=== PATIENT | female | born 1955 | race Caucasian/White ===

== ENCOUNTER → 2022-05-04 | Outpatient (CLI) | payer MEDICARE, SELFPAY ==
[2022-05-04 12:41] LABS: Hemoglobin A1c 7.1 % (3.8-5.6)
[2022-05-04 12:44] LABS: Hematocrit 38.7 % (37-47); Hemoglobin 12.4 g/dL (12.0-15.0); Mean Corpuscular Hgb 29.1 pg (27.0-32.0); Mean Corpuscular Volume 90.8 fL (81-99); Mean Platelet Vol. 10.8 fl (6.2-12.0); Platelet Count 248 K/mm3 (150-450); RBC Distribution Width SD 39.4 fl (35.1-43.9); Red Blood Count 4.26 M/mm3 (4.2-5.4); White Blood Count 5.9 K/mm3 (4.4-11.0)
[2022-05-04 12:57] LABS: AST(SGOT) 20 U/L (15-37); Alanine Aminotransfer ALT/SGPT 25 U/L (13-56); Albumin, Serum 3.8 g/dL (3.2-5.0); Alkaline Phosphatase 136 U/L (45-117); Anion Gap 6 (5-15); BUN 14 mg/dL (7-18); Calcium,Total 9.2 mg/dL (8.5-10.1); Chloride 103 mmol/L (98-107); Cholesterol 111 mg/dL (200); EST Glomerular Filtration Rate 59 mL/min (>60); Est Glom Filt Rate - Afr Amer 72 mL/min (>60); Globulin 3.7 g/dL (2.2-4.2); Glucose 169 mg/dL (74-106); High Density Lipoprotein 43 mg/dL; Potassium 3.8 mmol/L (3.5-5.1); Protein, Total 7.5 g/dL (6.4-8.2); Sodium Level 137 mmol/L (136-145); Triglycerides 97 mg/dL; Very Low Density Lipoprotein 19 mg/dL (5-40)
[2022-05-04 12:59] LABS: Microalbumin,Random Urine 7.2 mg/L (NO RANGE EST.)
== END | disposition home or self-care (01) ==
PROVIDERS: Referring Provider Nurse Practitioner Family; Visit Provider Nurse Practitioner Family
DX: E11.9 Type 2 diabetes mellitus without complications (principal); E78.5 Hyperlipidemia, unspecified
CPT/HCPCS: 36415; 80053; 80061; 82043; 83036; 85027

== ENCOUNTER → 2022-08-28 | Outpatient (CLI) | payer MEDICARE, SELFPAY ==
[2022-08-30 21:07] LABS: Pancreatic Elastase, Fecal 300 (>200)
== END | disposition home or self-care (01) ==
LOC: LABSPEC 09:40
PROVIDERS: Referring Provider Nurse Practitioner Adult Health; Visit Provider Nurse Practitioner Adult Health
DX: R14.0 Abdominal distension (gaseous) (principal); R10.10 Upper abdominal pain, unspecified; R19.7 Diarrhea, unspecified
CPT/HCPCS: 82653

== ENCOUNTER → 2022-09-03 | Outpatient (CLI) | payer MEDICARE, SELFPAY ==
--- NOTE | 2022-09-03 07:17 | US_ITS ---
INDICATION: postprandial upper abd pain, vomit EXAMINATION: Ultrasound US Abdomen Limited (quadrant) TECHNIQUE: Black scale and color doppler imaging was performed of the right upper quadrant. COMPARISON: FINDINGS: LIVER: The liver is diffusely echogenic consistent with fatty infiltration. No focal hepatic lesion. There is no free fluid. GALLBLADDER AND BILIARY TREE: No shadowing gallstone, pericholecystic fluid or gallbladder wall thickening is demonstrated. The proximal common bile duct measures 6.9 mm, which is within normal limits for the patient''s age. Songraphic Auguste''s sign: Negative. PANCREAS: No focal abnormality is demonstrated in the pancreas. No pancreatic ductal dilatation. RIGHT KIDNEY: The right kidney measures 10.8 cm in length and is within normal limits. US/Abdomen Limited IMPRESSION: Fatty infiltration of the liver. Mildly dilated common bile duct. Electronically Signed: Mitra Delgado MD at 8:14 EDT ,
== END | disposition home or self-care (01) ==
LOC: US 07:17
PROVIDERS: Referring Provider Nurse Practitioner Adult Health; Visit Provider Nurse Practitioner Adult Health
DX: R10.10 Upper abdominal pain, unspecified (principal); R14.0 Abdominal distension (gaseous)
CPT/HCPCS: 76705

== ENCOUNTER → 2022-09-05 | Outpatient (CLI) | payer MEDICARE, SELFPAY ==
--- NOTE | 2022-09-05 12:49 | NM_ITS ---
CLINICAL: 66-year-old female with history of abdominal pain and chronic nausea. SEMI-SOLID PHASE 99m Tc SULFUR COLLOID GASTRIC EMPTYING STUDY COMPARISON: Abdominal ultrasound report 09/03/2022 FINDINGS: The patient was administered 1.1 mCi of 99m Tc sulfur colloid mixed with oatmeal and consumed per os. Image acquisitions in the anterior-posterior projections were obtained for 60 minutes. There is prompt visualization of the stomach. There is no gastroesophageal reflux identified. The T ? raw data emptying was calculated to be 14.29 minutes, (Normal: 12-56 minutes). NM/Gastric Emptying Study IMPRESSION: 1. NORMAL 99m Tc sulfur colloid semi-solid phase (oatmeal) gastric emptying imaging examination. A. There is normal and preserved semi-solid phase gastric emptying compared. (Fernando et al, J Nucl Med Tech 38: 186, 2010). Electronically Signed: Alvarez Marcano, at 15:13 EDT ,
== END | disposition home or self-care (01) ==
LOC: NM 12:47
PROVIDERS: Referring Provider Nurse Practitioner Adult Health; Visit Provider Nurse Practitioner Adult Health
DX: R14.0 Abdominal distension (gaseous) (principal)
CPT/HCPCS: 78264; A9541

== ENCOUNTER 2022-09-17 06:02 | Day surgery (SDC) | payer MEDICARE, SELFPAY ==
--- NOTE | 2022-09-14 | IMM_PTH ---
PATIENT: MARLEN GRACE LOC: EN U#:[id number] AGE/SX: 66/F ROOM: RE09/17/[address]: Dr. Diallo John DO : 1955 BED: DIS: 09/17/2022 SPEC #: [id number] RECD: 09/17/22 14:51 STATUS: ZULMA REQ #: [id number] MORRIS: 09/14/22 00:[address]: Diallo John DEPT: IMMUNOHISTOCHEMISTRY RECD BY: Yuan Real ENTERED: 09/17/22 14:51 SP TYPE: IMMUNO OTHR DR: Lillian Markham, CHIEF DIGITAL OFFICERLorenzaC [facility] Tissues: B - Gastric mucous membrane Procedures: H Pylori (initial) PHYSICIAN & INSTITUTION [place] [id number] SPECIMEN INFORMATION: Tissue Source: B. Gastric antrum Clinical Info: upper abdominal pain, diarrhea Specimen Number: [id number] CPT code: 24972 METHODOLOGY: Deparaffinized sections of prefer/formalin-fixed tissue or PAP/DQ stained slides are incubated with monoclonal/polyclonal antibodies/oligonucleotide probes. Localization is made via biotin free immunoperoxidase method. Appropriate controls are performed and reacted as expected. Results on target cell population are indicated in the following table: RESULTS: ANTIBODY / CLONE RESULT H Pylori (polyclonal) negative These tests were developed and their performance characteristics determined by [facility]. They may not have been cleared or approved by the U.S. Food and Drug Administration. The FDA has determined that such clearance or approval is not necessary. The above immunohistochemical/dualISH markers are ordered and reviewed by the Pathologist. INTERPRETATION: B. Gastric antrum, biopsy: Negative for Helicobacter pylori organisms. SJ:jaimee 09/19/22
--- NOTE | 2022-09-17 06:25 | HP.PCM_ITS ---
History and Physical Date of Admission: 09/17/22 MARLEN GRACE, is a 66 F who presents to the office today to establish with Gastroenterology for several months of postprandial bloating and tightness and pain. Pain is epigastric and LUQ. Symptoms especially after supper, but can be after breakfast and lunch. Tried eating slower, tried smaller meals w/o relief. Occas vomiting. No early satiety. No relief with PPI. No relief with metamucil. Has gained 8 lbs. She has had years of LUQ discomfort; reports colonoscopy a few yrs ago that was negative. No heartburn, acid reflux, dysphagia. Stools tend to be loose, started yrs ago, not bothersome to her, daily BM every morning, better when switched from short-acting to long-acting metformin. No constipation. No melena or hematochezia. DM2 on insulin ROS Const Constitutional: Positive for weight change; No fatigue ENT ENT: No difficulty swallowing Cardio Cardiology: Positive for leg pain with exertion Gastro GI: Positive for abdominal pain, bloating, change in bowel habits, constipation, diarrhea, excessive flatus, nausea/dyspepsia and vomiting; No belching, change in stool character, coffee ground emesis, cramping, heartburn, difficulty swallowing, feeling full early, incontinent of stools, Vomiting blood/hematemesis, Blood in stool, loose stools, Black,tarry stools, pain with swallowing or other Musc Musculoskeletal: Positive for joint pain, muscle cramps, leg pain at night and leg pain with exertion Skin Skin: No yellowing of the eye or itchy eyes Psych Psychiatric: No anxiety and No depression Endo Endocrine: Positive for weight change; No fatigue Aller/Imm Allergy/Immunologic: No itchy eyes Jose/Lymp Hematologic/Lymphatic: No easy bleeding or easy bruising Exam Const General: cooperative and comfortable Orientation: alert, awake and oriented x3 Eyes Sclera: sclerae normal Resp Effort & Inspection: normal respiratory effort GI Inspection: normal to inspection Palpation: soft, no hepatosplenomegaly, no masses and tender in the LUQ Quality Reporting Tobacco Screening ([facility] 138) Smoking Status: Current every day smoker Assessment and Plan Assessment and Plan (1) Postprandial abdominal bloating: Status: Chronic Plan: 66 yr old female with several months of postprandial upper abdominal bloating/pain/tightness. DDx includes gastroparesis, EPI, gastritis. Will get gastric emptying study, upper abd US, fecal elastase, EGD. Will call her with results. F/u appt 2 wks after EGD. (2) Upper abdominal pain: Status: Chronic (3) Diarrhea: Status: Chronic Orders: Orders Gastric Emptying Study Today R14.0 - Abdominal distension (gaseous) Abdomen Limited Today R10.10 - Upper abdominal pain, unspecified, R14.0 - Abdominal distension (gaseous) Pancreatic Elastase, Fecal Today R10.10 - Upper abdominal pain, unspecified, R14.0 - Abdominal distension (gaseous), R19.7 - Diarrhea, unspecified I have examined the patient and the H&P has been reviewed. There are no clinical changes since date of exam.
[2022-09-17] MEDS: Lactated Ringers 1,000 ML 15 ML IV (06:45)
[2022-09-17 07:05] VITALS: BP 128/83; PULSE 70; RESP 16; TEMP 36.2; O2SAT 99; BMI 32.5
--- NOTE | 2022-09-17 07:15 | EGD_PTH ---
PATIENT: MARLEN GRACE LOC: EN U#:[id number] AGE/SX: 66/F ROOM: RE09/17/[address]: Dr. Diallo John DO : 1955 BED: DIS: 09/17/2022 SPEC #: [id number] RECD: 09/17/22 10:55 STATUS: ZULMA REValarie #: [id number] MORRIS: 09/17/22 07:[address]: Diallo John DEPT: SURGICAL PATHOLOGY RECD BY: Charissa Artis ENTERED: 09/17/22 11:42 SP TYPE: EGD BIOPSY OT DR: Lillian Markham, PROPELLANT CHARGE ZONE ASSEMBLER-C [facility] Tissues: A - Duodenum, NOS B - Gastric mucous membrane C - Gastric mucous membrane Procedures: Special Stain Group II Surgery Specimen Level IV Alcian Blue/PAS (control) HEADER OPERATION: EGD biopsy PRE-OP DIAGNOSIS: Postprandial abdominal bloating, upper abdominal pain, diarrhea TISSUE SUBMITTED: A. Duodenum, B. Gastric antrum, C. Gastric body biopsy MICROSCOPIC DIAGNOSIS A. Duodenum, biopsy: Fragments of duodenal mucosa with focal gastric metaplasia. B. Gastric antrum, biopsy: Mild gastritis. See microscopic description and comment. C. Gastric body biopsy: Mild gastritis. See microscopic description. COMMENT B. Alcian blue/PAS stain with matched control is used in the evaluation of the specimen. MICROSCOPIC DESCRIPTION Slides are reviewed. B. The specimen shows fragments of gastric mucosa with chronic inflammatory cell infiltrates in the lamina propria consisting of lymphocytes and plasma cells, consistent with mild chronic gastritis. Focal intestinal metaplasia (goblet cell metaplasia) is also noted. B. The specimen shows fragments of gastric mucosa with chronic inflammatory cell infiltrates in the lamina propria consisting of lymphocytes and plasma cells, consistent with mild chronic gastritis. GROSS DESCRIPTION A. Received is one container labeled with the patient name and designated duodenum. The specimen consists of multiple irregular fragments of light gold soft tissue that in aggregate measure 1 x 0.3 x 0.1 cm. The specimen is totally submitted in one cassette. / B. Received is one container labeled with the patient name and designated gastric antrum. The specimen consists of two irregular fragments of light gold soft tissue that in aggregate measure 0.6 x 0.2 x 0.1 cm. The specimen is totally submitted in one cassette. / : C. Received is one container labeled with the patient name and designated gastric body. The specimen consists of two irregular fragments of light gold soft tissue that in aggregate measure 0.6 x 0.3 x 0.1] cm. The specimen is totally submitted in one cassette. / SJ: 09/18/22 TC:3 CPT: 41192c 3, 45866
[2022-09-17 07:36] VITALS: BP 104/58; BP 128/83; PULSE 67; RESP 18; TEMP 36.3; O2SAT 97
[2022-09-17 07:40] VITALS: BP 128/83; BP 99/59; PULSE 64; RESP 18; O2SAT 96
--- NOTE | 2022-09-17 07:40 | OP.EGD_ITS ---
Patient Name: Ayanna Rajan Procedure Date: 09/17/2022 7:20 AM Date of : 1955 Age: 66 Procedure: Upper GI endoscopy Indications: Epigastric abdominal pain Providers: Diallo John DO Medicines: Monitored Anesthesia Care Patient Profile: This is a 66 year old female. Refer to note in patient chart for documentation of history and physical. Patient has symptoms of chronic epigastric abdominal pain and chronic dyspepsia. Complications: No immediate complications. Procedure: Pre-Anesthesia Assessment: - Prior to the procedure, a History and Physical was performed, and patient medications and allergies were reviewed. The risks and benefits of the procedure and the sedation options and risks were discussed with the patient. All questions were answered and informed consent was obtained. Patient identification and proposed procedure were verified by the physician. Mental Status Examination: normal. Respiratory Examination: clear to auscultation. Prophylactic Antibiotics: The patient does not require prophylactic antibiotics. Prior Anticoagulants: The patient has taken no previous anticoagulant or antiplatelet agents. ASA Grade Assessment: II - A patient with mild systemic disease. After reviewing the risks and benefits, the patient was deemed in satisfactory condition to undergo the procedure. The anesthesia plan was to use monitored anesthesia care (MAC). Immediately prior to administration of medications, the patient was re-assessed for adequacy to receive sedatives. The heart rate, respiratory rate, oxygen saturations, blood pressure, adequacy of pulmonary ventilation, and response to care were monitored throughout the procedure. The physical status of the patient was re-assessed after the procedure. After obtaining informed consent, the endoscope was passed under direct vision. Throughout the procedure, the patient's blood pressure, pulse, and oxygen saturations were monitored continuously. The Endoscope was introduced through the mouth, and advanced to the second part of duodenum. The upper GI endoscopy was accomplished without difficulty. The patient tolerated the procedure well. Scope In: 7:26:27 AM Scope Out: 7:30:57 AM Total Procedure Duration Time 0 hours 4 minutes 30 seconds Findings: A single area of ectopic gastric mucosa was found in the upper third of the esophagus, 19 cm from the incisors. The examined esophagus was normal. Patchy mildly erythematous mucosa without bleeding was found in the gastric body. Biopsies were taken with a cold forceps for histology. Verification of patient identification for the specimen was done. Estimated blood loss was minimal. Diffuse moderate inflammation characterized by congestion (edema), erosions, erythema, friability and granularity was found in the duodenal bulb. Biopsies were taken with a cold forceps for histology. Verification of patient identification for the specimen was done. Estimated blood loss was minimal. Impression: - Ectopic gastric mucosa in the upper third of the esophagus. - Normal esophagus. - Erythematous mucosa in the gastric body. Biopsied. - Chronic duodenitis secondary to lack of pyloric sphincter causing poor admixture and dumping into the duodenum resulting in inflammation and swelling in the duodenum. Biopsied. Recommendation: - Discharge patient to home. - Resume previous diet. - Continue present medications. - Await pathology results. - Antidumping diet Procedure Code(s): --- Professional --- 48652, Esophagogastroduodenoscopy, flexible, transoral; with biopsy, single or multiple CPT copyright 2017 [employer]. All rights reserved. The codes documented in this report are preliminary and upon ski top trimmer review may be revised to meet current compliance requirements. Diallo John DO 09/17/2022 7:39:21 AM This report has been signed electronically. Number of Addenda: 0 Note Initiated On: 09/17/2022 7:20 AM
--- NOTE | 2022-09-17 07:40 | OP.CCLET_ITS ---
09/17/2022 Elisa Deluna [facility] Re : Upper GI endoscopy procedure for Ayanna Armendariz [facility] This procedure was performed on Saturday, September 17, 2022. My impressions and recommendations are as follows: Impressions : - Ectopic gastric mucosa in the upper third of the esophagus. - Normal esophagus. - Erythematous mucosa in the gastric body. Biopsied. - Chronic duodenitis secondary to lack of pyloric sphincter causing poor admixture and dumping into the duodenum resulting in inflammation and swelling in the duodenum. Biopsied. Recommendations : - Discharge patient to home. - Resume previous diet. - Continue present medications. - Await pathology results. - Antidumping diet My findings are described in the full procedure note, which is enclosed. If I can be of further assistance, please feel free to contact me at . Sincerely, Diallo John, 09/17/2022 7:39:21 AM This report has been signed electronically.
[2022-09-17 07:45] VITALS: BP 128/83; BP 99/59; PULSE 64; RESP 16; O2SAT 98
[2022-09-17 07:51] VITALS: BP 128/83; BP 98/57; PULSE 63; RESP 16; TEMP 36.3; O2SAT 99
[2022-09-17 08:08] VITALS: BP 128/83
[2022-09-17 09:16] LABS: Bedside Glucose 129 mg/dL (74-106)
== END 2022-09-17 08:18 | disposition home or self-care (01) ==
LOC: EN 06:04 → AC 06:07
PROVIDERS: Referring Provider Internal Medicine Gastroenterology; Visit Provider Internal Medicine Gastroenterology
PROC: 0DJ08ZZ Inspection of Upper Intestinal Tract, Via Natural or Artificial Opening Endoscopic (ICD-10-PCS; CPT 43235; principal; 2022-09-17 07:10)
DX: K29.80 Duodenitis without bleeding (principal); E11.9 Type 2 diabetes mellitus without complications; F17.200 Nicotine dependence, unspecified, uncomplicated; K31.A0 Gastric intestinal metaplasia, unspecified; K29.70 Gastritis, unspecified, without bleeding; Z79.01 Long term (current) use of anticoagulants; Z79.84 Long term (current) use of oral hypoglycemic drugs; Z79.899 Other long term (current) drug therapy; E78.00 Pure hypercholesterolemia, unspecified; Z87.19 Personal history of other diseases of the digestive system
CPT/HCPCS: 43239; 82962; 88305; 88313; 88342; J7120; J2405

== ENCOUNTER → 2022-10-24 | Outpatient (CLI) | payer MEDICARE, SELFPAY ==
[2022-10-24 10:20] LABS: Hematocrit 38.3 % (37-47); Hemoglobin 11.9 g/dL (12.0-15.0); Mean Corp Hgb Conc 31.1 g/dL (32-36); Mean Corpuscular Hgb 28.2 pg (27.0-32.0); Mean Corpuscular Volume 90.8 fL (81-99); Mean Platelet Vol. 10.4 fl (6.2-12.0); Platelet Count 258 K/mm3 (150-450); RBC Distribution Width CV 12.6 % (11.6-14.6); RBC Distribution Width SD 41.1 fl (35.1-43.9); Red Blood Count 4.22 M/mm3 (4.2-5.4); White Blood Count 6.7 K/mm3 (4.4-11.0)
[2022-10-24 11:06] LABS: ALB/GLOB Ratio 0.9 RATIO (0.9-2.4); AST(SGOT) 15 U/L (15-37); Alanine Aminotransfer ALT/SGPT 22 U/L (13-56); Albumin, Serum 3.5 g/dL (3.2-5.0); Alkaline Phosphatase 108 U/L (45-117); Anion Gap 7 (5-15); BUN 16 mg/dL (7-18); BUN/Creat Ratio 15.7 RATIO (10-20); Calcium,Total 8.9 mg/dL (8.5-10.1); Chloride 107 mmol/L (98-107); Creatinine, Serum 1.02 mg/dL (0.55-1.02); EST Glomerular Filtration Rate 58 mL/min (>60); Est Glom Filt Rate - Afr Amer 70 mL/min (>60); Globulin 3.7 g/dL (2.2-4.2); Glucose 274 mg/dL (74-106); Potassium 4.3 mmol/L (3.5-5.1); Protein, Total 7.2 g/dL (6.4-8.2); Sodium Level 140 mmol/L (136-145); Thyroid Stim Hormone (TSH) 1.86 uIU/mL (0.358-3.74)
== END | disposition home or self-care (01) ==
LOC: MTLAB 09:13
PROVIDERS: Referring Provider Nurse Practitioner Family; Visit Provider Nurse Practitioner Family
DX: I10 Essential (primary) hypertension (principal); E11.9 Type 2 diabetes mellitus without complications
CPT/HCPCS: 36415; 80053; 83036; 84443; 85027

== ENCOUNTER 2023-04-04 10:34 | Emergency (ER) | payer MEDICARE, SELFPAY ==
[2023-04-04 10:35] VITALS: BP 166/71; PULSE 88; RESP 18; TEMP 36.8; O2SAT 97; BMI 34.0
--- NOTE | 2023-04-04 10:47 | EX.ED.DYSGE1 ---
HPI History of Present Illness Chief Complaint: Abd Pain [facility] Medical History (Updated 01/04/23 @ 10:[address] Landrum Friend, DO) Cancer Constipation Diabetes Former smoker High cholesterol History of gallstones HLD (hyperlipidemia) Migraine headache Postprandial abdominal bloating Sleep apnea Home Medications cetirizine 10 mg tablet (Zyrtec) 10 mg PO DAILY allergies 03/29/17 [History Last Taken Unknown] insulin detemir U-100 100 unit/mL subcutaneous solution (Levemir U-100 Insulin) 70 units SQ QHS diabetes 03/29/17 [History Last Taken Unknown] insulin regular human 100 unit/mL injection solution (Novolin R Regular U-100 Insulin) 17 units SQ TID diabetes 03/29/17 [History Last Taken Unknown] lisinopril 40 mg tablet 20 mg PO BID BP 03/29/17 [History Last Taken 09/17/22] metformin 1,000 mg tablet 1,000 mg PO DAILY diabetes 03/29/17 [History Last Taken Unknown] atorvastatin 80 mg tablet 80 mg PO QHS #30 tabs 03/30/17 [Rx Last Taken Unknown] clopidogrel 75 mg tablet 75 mg PO DAILY #30 tabs 03/30/17 [Rx Last Taken 09/13/22] amlodipine 10 mg tablet 10 mg PO DAILY 08/15/22 [History Last Taken 09/17/22 05:30] magnesium 200 mg tablet 200 mg PO DAILY 08/15/22 [History Last Taken Unknown] ascorbic acid (vitamin C) 1,000 mg tablet (Vitamin C) 1 g PO DAILY 09/13/22 [History Last Taken Unknown] cholecalciferol (vitamin D3) 25 mcg (1,000 unit) tablet (Vitamin D3) 25 mcg PO DAILY 09/13/22 [History Last Taken Unknown] potassium 99 mg tablet 99 mg PO DAILY 09/13/22 [History Last Taken Unknown] Allergy/AdvReac Type Severity Reaction Status Date / Time Environmental Allergies: Allergy NEEDS Verified 04/04/23 10:35 Uncoded FOLLOW-UP Social History Smoking Status: Former smoker EXAM Physical Exam Const Vital Signs: 04/04/23 10:35 Temperature 98.3 F Temperature Source Temporal Pulse Rate 88 Respiratory Rate 18 Blood Pressure 166/71 H Blood Pressure Mean 102 Pulse Ox 97 Oxygen Delivery Method Room Air [facility] [place] Narrative Medical decision making narrative: HISTORY OF PRESENT ILLNESS: 67-year-old female presents with abdominal pain and nausea. Notes is been on for 3 weeks. Left upper quadrant pain. Notes history of hysterectomy and . No history of bladder cancer. Notes had an EGD in the past. Denies any fever, vomiting, chest pain, urinary complaints, vaginal bleeding or discharge. Notes chronic diarrhea REVIEW OF SYSTEMS: Pertinent positives: Abdominal pain, abdominal mass, diarrhea, nausea Pertinent negatives: Fever, chest pain PHYSICAL EXAM: Nursing triage notes reviewed, Vital signs reviewed Constitutional: please see [facility] HENT: MMM Eyes: Pupils equal round and reactive to light, Extraocular muscles intact Neck: No stridor, no JVD, full neck ROM Lungs: Clear to auscultation, No wheezing or rales. No increased work of breathing, no conversational dyspnea, no accessory muscle use, no nasal flaring. No respiratory distress noted Heart: Regular rate and rhythm, No murmurs, No rubs and No gallops, 2+ distal pulses (radial, femoral, posterior tibial) in all extremities Abdomen: Soft, there is no tenderness, rigidity, rebound or guarding, no obvious peritoneal signs, no palpable pulsatile abdominal masses, no auscultated abdominal bruit. No obvious hernia. : No CVAT Extremities: No edema Neuro: No focal neurological deficits, cranial nerves II through XII intact, 5/5 strength in all extremities. Intact sensation to light touch in all extremities, 2+ reflexes bilateral patella tendons. Normal gait. No ataxia. Skin: No rash or lesions noted MEDICAL DECISION MAKING: Chief Complaint: Abdominal pain External records reviewed: Myocardial ultrasound from August 2022 shows fatty infiltration of the liver but no evidence of acute gallbladder pathology Factors affecting care: Hyperlipidemia, history of gallstones, postprandial abdominal pain, type 2 diabetes [facility] Narrative: Patient was initially hemodynamically stable, afebrile, nontoxic-appearing abdominal exam was benign. No obvious herniation. No overlying skin changes. I considered the following differential diagnosis: Abdominal mass, pyelonephritis, kidney stone, obstruction, perforation I obtained a broad lab and imaging workup to further elucidate the etiology of the patient complaints. ALL IMAGES (IF OBTAINED) HAVE BEEN PERSONALLY REVIEWED AND INTERPRETED BY MYSELF. CT scan abdomen pelvis shows no evidence of mass obstruction or other intra-abdominal pathology CBC without leukocytosis, severe anemia, no thrombocytopenia. CMP without evidence of acute kidney injury, significant electrolyte abnormality, anion gap, no evidence hepatobiliary pathology. LFTs show no evidence of hepatobiliary pathology. Lipase is wnl indicating no pancreatic inflammation. Urinalysis shows no evidence of urinary inflammation suggestive of UTI The synthesis of the patient's history, physical exam, labs images suggest no acute life-limiting etiology. The patient's plan for discharge home with close GI follow-up. The patient and/or family, caregivers express understanding. The patient and/or family, caregivers agrees with the plan. Shared decision making: I will have a discussion with the patient and or visitors regarding risk/benefits of further testing or admission. They will be made aware of of the risk/benefits inherent in this decision they will be given the opportunity to voice understanding. Total critical care time today provided was at least 0 minutes. This excludes separately billable procedures. Critical care time (if documented) is secondary to the patient having high probability of clinically significant/life threatening deterioration in the patient's condition which required my urgent intervention. Impression: 1. Arm pain 2. History of diabetes 3. Hyperglycemia 4. Abdominal mass Dispo: Discharge Lab Data Labs: Laboratory Results - last 24 hr 04/04/23 04/04/23 11:30 11:39 WBC 6.2 RBC 4.49 Hgb 12.6 Hct 38.8 MCV 86.4 MCH 28.1 MCHC 32.5 RDW Std Deviation 40.0 RDW Coeff of Michaela 12.6 Plt Count 269 MPV 10.2 Immature Gran % (Auto) 0.300 Neut % (Auto) 60.0 Lymph % (Auto) 30.0 [place] % (Auto) 8.4 Eos % (Auto) 0.8 Baso % (Auto) 0.5 Absolute Neuts (auto) 3.7 Absolute Lymphs (auto) 1.86 Nucleated RBC % 0 Sodium 139 Potassium 4.1 Chloride 106 Carbon Dioxide 28.0 Anion Gap 5 BUN 15 Creatinine 0.97 Estim Creat Clear Calc 57.50 Est GFR (MDRD) Af Amer 74 Est GFR (MDRD) Non-Af 61 BUN/Creatinine Ratio 15.5 Glucose 181 H Calcium 9.6 Total Bilirubin 0.30 AST 15 ALT 26 Alkaline Phosphatase 127 H Total Protein 7.6 Albumin 3.8 Globulin 3.8 Albumin/Globulin Ratio 1.0 Lipase 36 Urine Color Yellow Urine Clarity Sl. Cloudy Urine pH 7.0 Ur Specific [place] 1.010 Urine Protein Negative Urine Glucose (UA) Normal Urine Ketones Negative Urine Occult Blood Negative Urine Nitrite Negative Urine Bilirubin Negative Urine Urobilinogen Normal Ur Leukocyte Esterase Negative Urine RBC 0 SEEN Urine WBC 0 SEEN Ur Squamous Epith Cells 0-5 SEEN Urine Bacteria 0 SEEN Urine Mucus 0 SEEN Radiography Diagnostic Testing: Clinical Impression(s) from Imaging Studies Abdomen/Pelvis CT 04/04/23 12:28 IMPRESSION: Mild hepatomegaly and fatty infiltration of the liver. Scattered sigmoid diverticula. Electronically Signed: Beltran Bull MD at 12:49 EST , Discharge Plan Triage Chief Complaint: Abd Pain ED Provider: Alejandro Chaudhry Dx/Rx/DC Orders Prescriptions: No Action amlodipine 10 mg tablet 10 mg PO DAILY magnesium 200 mg tablet 200 mg PO DAILY Novolin R Regular U100 Insulin 100 solution 17 units SQ TID Patient Comments: lisinopril 40 tablet 20 mg PO BID Patient Comments: Levemir U-100 Insulin 100 solution 70 units SQ QHS Patient Comments: cetirizine [Zyrtec] 10 MG tablet 10 mg PO DAILY metformin 1,000 MG tablet 1,000 mg PO DAILY atorvastatin 80 MG tablet 80 mg PO QHS Qty: 30 0RF clopidogrel 75 MG tablet 75 mg PO DAILY Qty: 30 0RF ascorbic acid (vitamin C) [Vitamin C] 1,000 mg tablet 1 g PO DAILY potassium 99 mg tablet 99 mg PO DAILY cholecalciferol (vitamin D3) [Vitamin D3] 25 mcg (1,000 unit) tablet 25 mcg PO DAILY Primary Care Provider: [facility]isa Pulliam [facility]: [facility] -
[2023-04-04 11:36] LABS: Bacteria 0 SEEN /hpf (None Seen); Mucous, Urine 0 SEEN /hpf (<or=2+); Red Blood Cells-Urine 0 SEEN /hpf (0-5); White Blood Cells 0 SEEN /hpf (0-5)
[2023-04-04 11:43] LABS: Color, Urine Yellow (Yellow); Glucose, Dipstick Normal (Normal); Ketone-Dipstick Negative (Negative); Leukocyte Esterase-Dipstick Negative /ul (Negative); Nitrite-Dipstick Negative (Negative); Occult Blood-Urine Negative /ul (Negative); Protein-Dipstick Negative (Negative); Urine Bilirubin Dipstick Negative (Negative); Urine Clarity Sl. Cloudy (Clear); Urine Urobilinogen Normal (Normal)
[2023-04-04 11:45] LABS: Absolute Lymphocyte Count 1.86 X10^3/uL (0.83-4.51); Absolute Neutrophil Count 3.7 X10^3/uL (2.0-7.7); Basophil# 0.03 X10^3/uL; Basophil% 0.5 % (0-1); Eosinophil# 0.05 X10^3/uL; Eosinophils% 0.8 % (0-5); Hematocrit 38.8 % (37-47); Hemoglobin 12.6 g/dL (12.0-15.0); Lymphocyte # 1.86 X10^3/ul (0.83-4.51); Mean Corp Hgb Conc 32.5 g/dL (32-36); Mean Corpuscular Hgb 28.1 pg (27.0-32.0); Mean Corpuscular Volume 86.4 fL (81-99); Mean Platelet Vol. 10.2 fl (6.2-12.0); Monocyte# 0.52 X10^3/uL; Monocyte% 8.4 % (0-10); NRBC Flagged by Analyzer 0 % (0-5); Neutrophil # 3.72 X10^3/uL (2.7-7.7); Platelet Count 269 K/mm3 (150-450); RBC Distribution Width CV 12.6 % (11.6-14.6); Red Blood Count 4.49 M/mm3 (4.2-5.4); White Blood Count 6.2 K/mm3 (4.4-11.0)
[2023-04-04 11:51] LABS: Squamous Epithelial Cells - UA 0-5 SEEN /hpf (5-10)
[2023-04-04 12:01] LABS: AST(SGOT) 15 U/L (15-37); Alanine Aminotransfer ALT/SGPT 26 U/L (13-56); Albumin, Serum 3.8 g/dL (3.2-5.0); Alkaline Phosphatase 127 U/L (45-117); Anion Gap 5 (5-15); BUN 15 mg/dL (7-18); BUN/Creat Ratio 15.5 RATIO (10-20); Calcium,Total 9.6 mg/dL (8.5-10.1); Chloride 106 mmol/L (98-107); Creatinine, Serum 0.97 mg/dL (0.55-1.02); EST Glomerular Filtration Rate 61 mL/min (>60); Est Glom Filt Rate - Afr Amer 74 mL/min (>60); Globulin 3.8 g/dL (2.2-4.2); Glucose 181 mg/dL (74-106); Lipase 36 U/L (13-75); Potassium 4.1 mmol/L (3.5-5.1); Protein, Total 7.6 g/dL (6.4-8.2); Sodium Level 139 mmol/L (136-145)
--- OUTSIDE RECORDS SUMMARY | 2023-04-04 12:19 | XMS RPT_ITS | CCD ---
Author Name Unknown Address [address] [place] [address] Organization [facility] Care Team Providers Care Refinish Technician Name Role Phone ANETTE MEEK Consulting Unavailable MAMADOU SMYTH Admitting Unavailable MAMADOU SMYTH Attending Unavailable MAMADOU SMYTH Primary Care Unavailable PROVIDER, UNKNOWN Consulting Unavailable PROVIDER, UNKNOWN Consulting Unavailable PROVIDER, UNKNOWN Consulting Unavailable Rosa Maria Dave CNP Primary Care Provider Testfrank, Guillermo Unavailable ANETTE MEEK MD Primary Care Physician Rosa Maria Dave CNP Primary Care Provider Testfrank, Guillermo Unavailable Rosa Maria Dave CNP Primary Care Provider Rosa Maria Dave CNP Primary Care Provider Testfrank, Guillermo Unavailable JULIO SIERRA Attending Unavail able ROSA MARIA DAVE Primary Care Unavailable BLANCA MOLINA Attending Unavailabl e ROSA MARIA DAVE Primary Care Unavailable Medications Current Medications Medication Drug Class(es) Dates Sig (Normalized) Sig (Original) sulfamethoxazole 800 mg / trimethoprim 160 mg oral tablet (3 sources) Dihydrofolate Reductase Inhibitor Antibacterial, Sulfonamide Antimicrobial Start: 08-25-2021 End: 08-25-2022 take 1 tablet by mouth twice daily sulfamethoxazol e-trimethoprim (BACTRIM DS) 800-160 mg per tablet Indications: Bladder tumor Take 1 tablet by mouth twice daily for 3 days. 6 tablet 0 12/01/2021 12/04/2021 Active Completed/Discontinued Medications Medication Drug Class(es) Dates Sig (Normalized) Sig (Original) amLODIPine 10 mg oral tablet (5 sources) Dihydropyridine Calcium Channel Hailey Start: 08-14-2021 amLODIPine (NORVASC) 10 mg tablet ascorbic acid 1000 mg oral tablet (5 sources) Vitamin C Start: 06-21-2020 Ascorbic Acid 1,000 mg tablet Take by mouth. 0 06/21/2020 Active Problems Active Problems Problem Classification Problem Date Documented Date Episodic/Chronic Abdominal pain (3 sources) Lower abdominal pain, unspecified; Translations: [Lower abdominal pain, unspecified] Onset: 05-30-2019 Episodic Acute cerebrovascular disease (4 sources) Cerebrovascular accident; Translations: [Cerebral infarction, unspecified] Onset: 06-19-2022 Chronic Cancer of bladder (4 sources) Malignant tumor of urinary bladder; Translations: [Malignant neoplasm of bladder, unspecified] Onset: 06-19-2022 Chronic Chronic obstructive pulmonary disease and bronchiectasis (9 sources) Chronic obstructive lung disease; Translations: [Chronic obstructive pulmonary disease, unspecified] Onset: 11-07-2015 11-07-2015 Chronic Diabetes mellitus without complication (10 sources) Type 2 diabetes mellitus without complications; Translations: [Type 2 diabetes mellitus without complication] Onset: 11-07-2015 11-07-2015 Chronic Essential hypertension (10 sources) Essential (primary) hypertension; Translations: [Hypertensive disorder] Onset: 11-07-2015 11-07-2015 Chronic Genitourinary symptoms and ill-defined conditions (4 sources) Incontinence; Translations: [Mixed incontinence] Onset: 06-19-2022 Chronic Nonmalignant breast conditions (9 sources) Fibrocystic disease of breast; Translations: [Diffuse cystic mastopathy of unspecified breast] Onset: 05-13-2006 05-13-2006 Chronic Other circulatory disease (1 source) Personal history of transient ischemic attack (TIA), and cerebral infarction without residual deficits; Translations: [Personal history of transient ischemic attack (TIA), and cerebral infarction without residual deficits] Onset: 05-30-2019 Episodic Other diseases of bladder and urethra (1 source) Bladder disorder, unspecified; Translations: [Bladder disorder, unspecified] Onset: 05-30-2019 Chronic Other screening for suspected conditions (not mental disorders or infectious disease) (10 sources) Mammography abnormal; Translations: [Other abnormal and inconclusive findings on diagnostic imaging of breast] Onset: 04-08-2006 04-08-2006 Episodic Past or Other Problems Problem Classification Problem Date Documented Da te Episodic/Chronic Genitourinary symptoms and ill-defined conditions (4 sources) Urgent desire to urinate; Translations: [Urgency of urination] Onset: 06-19-2022 Episodic Neoplasms of unspecified nature or uncertain behavior (8 sources) Neoplasm of bladder; Translations: [Neoplasm of unspecified behavior of bladder] Onset: 12-01-2021 Episodic Nonmalignant breast conditions (9 sources) Breast signs and symptoms; Translations: [Other signs and symptoms in breast] Onset: 04-18-2006 04-18-2006 Episodic Results Test Name Value Interpretation Reference Range Facil ity Vital Signs Date Time Vital Sign Value Performing Clinician Faci lity 10-31-2022 14:48-0400 Body height 157.5 cm Blanca Molina MD Work Phone: [facility] 10-31-2022 14:48-0400 Body weight 77.56 kg Blanca Molina MD Work Phone: [facility] 10-31-2022 14:48-0400 Respiratory rate 18 /min Blanca Molina MD Work Phone: [facility] 06-19-2022 15:00-0400 Body height 157.5 cm Blanca Molina MD Work Phone: [facility] 06-19-2022 15:00-0400 Body weight 77.56 kg Blanca Molina MD Work Phone: [facility] 06-19-2022 15:00-0400 Respiratory rate 16 /min Blanca Molina MD Work Phone: [facility] 12-01-2021 09:32-0400 Body height 157.5 cm Julio Sierra MD Work Phone: [facility] 12-01-2021 09:32-0400 Body weight 77.56 kg Julio Sierra MD Work Phone: [facility] 12-01-2021 09:32-0400 Diastolic blood pressure 74 mm[Hg] Julio Sierra MD Work Phone: [facility] 12-01-2021 09:32-0400 Heart rate 70 /min Julio Sierra MD Work Phone: [facility] 12-01-2021 09:32-0400 Respiratory rate 16 /min Julio Sierra MD Work Phone: [facility] 12-01-2021 09:32-0400 SaO2% (BldA) [Mass fraction] 98 % Julio Sierra MD Work Phone: [facility] 12-01-2021 09:32-0400 Systolic blood pressure 140 mm[Hg] Julio Sierra MD Work Phone: [facility] 08-25-2021 12:47-0400 Body height 154.9 cm Julio Sierra MD Work Phone: [facility] 08-25-2021 12:47-0400 Body weight 78.83 kg Julio Sierra MD Work Phone: [facility] 08-10-2021 17:15-0400 Body weight 78.02 kg Julio Sierra MD Work Phone: [facility] 08-10-2021 17:15-0400 Diastolic blood pressure 66 mm[Hg] Julio Sierra MD Work Phone: [facility] 08-10-2021 17:15-0400 Heart rate 83 /min Julio Sierra MD Work Phone: [facility] 08-10-2021 17:15-0400 Respiratory rate 17 /min Julio Sierra MD Work Phone: [facility] 08-10-2021 17:15-0400 SaO2% (BldA) [Mass fraction] 97 % Julio Sierra MD Work Phone: [facility] 08-10-2021 17:15-0400 Systolic blood pressure 152 mm[Hg] Julio Sierra MD Work Phone: [facility] Encounters Encounter Date Encounter Type Care Provider Facility Start: 10-31-2022 End: 10-31-2022 Patient encounter procedure Blanca Molina MD Work Phone: Urology Procedures Date Procedure Procedure Detail Performing Clinician Start: 10-31-2022 Urnls dip stick/tabl et rgnt auto w/o microscopy Blanca Molina MD Work Phone: Start: 08-25-2021 GLUCOSE METER Julio Sierra MD Work Phone: Start: 08-25-2021 GLUCOSE METER Julio Sierra MD Work Phone: Start: 05-30-2019 Urinalysis ANETTE Key Plan of Treatment Date Care Activity Detail Author Start: 10-24-2023 Hepatitis B screening URINE AL BUMIN:CREATININE RATIO [facility] Start: 11-09-2022 Influenza vaccination C [facility] Start: 03-11-2022 ADVANCE DIRECTIVE DISCUSSION ADVANCE DIRECTIVE DISCUSSION [facility] Start: 03-11-2022 DEPRESSION ASSESSMENT DEPRESSION ASS [facility] Start: 11-09-2021 Influenza vaccination C [facility] Start: 2021 ADVANCE DIRECTIVE DISCUSSION ADVANCE DIRECTIVE DISCUSSION [facility] Start: 2021 BONE DENSITY BONE DENSITY [facility] Start: 03-11-2021 DEPRESSION ASSESSMENT DEPRESSION ASS ESSMENT [facility] Start: 11-09-2020 Influenza vaccination INFLUENZA (#1) [facility] Start: 2006 SHINGRIX VACCINE (1 of 2) SHINGRIX V ACCINE (1 of 2) [facility] Start: 2001 COLOGUARD (FIT-DNA) COLOGUARD (FIT-D NA) [facility] Start: 2001 Colonoscopy COLONOSCOPY [facility] Start: 2001 COLORECTAL CANCER SCREENING COLORECTAL CANCER SCREENING [facility] Start: [address] COLONOGRAPHY [facility] Start: 2001 FECAL OCCULT BLOOD FECAL OCCULT BLOO D [facility] Start: 2001 SIGMOIDOSCOPY SIGMOIDOSCOPY [facility] Start: 1996 Mammography MAMMOGRAM [facility] Start: 1986 HPV TESTING HPV TESTING [facility] Start: 1986 Zoledronic acid therapy ALPHA- 1 ANTITRYPSIN DEFICIENCY SCREENING [facility] Start: 1977 PAP TESTING PAP TESTING [facility] Start: 10-21-1975 Urine microalbumin profile DTAP,TDAP ,TD (1 - Tdap) [facility] Start: 1974 ANNUAL PCP TEAM MAINTENANCE WORKER MUNICIPAL DONTE DISEASE VISIT ANNUAL PCP TEAM CHRONIC DISEASE VISIT [facility] Start: 1974 BP CONTROLLED (<130/80) BP CONTROLLE D (<130/80) [facility] Start: 1974 Hepatitis B surface antibody level LDL CHOLESTEROL [facility] Start: 1974 HEPATITIS C SCREENING HEPATITIS C SC REENING [facility] Start: 1974 HIV SCREENING HIV SCREENING [facility] Start: 1974 SPIROMETRY SPIROMETRY [facility] Start: 1972 ONE PNEUMOVAX PRIOR TO AGE 65 ONE PNEUMOVAX PRIOR TO AGE 65 [facility] Start: 1968 Adult depression scr eening assessment DEPRESSION SCREENING [facility] Start: 1966 3 comp foot exam completed DIABETIC FOOT EXAM [facility] Start: 1966 Hepatitis B screening URINE AL BUMIN:CREATININE RATIO [facility] Start: 1966 Hepatitis C antibody , confirmatory test DILATED RETINAL EXAM [facility] Start: 1962 PNEUMOCOCCAL (1 - PCV) PNEUMOCOCCAL (1 - PCV) [facility] Start: 1962 PNEUMOCOCCAL: 65+ (1 - PCV) PNEUMOCOCCAL: 65+ (1 - PCV) [facility] Start: 1961 COVID-19 VACCINE (#1) COVID-19 VACCI NE (#1) [facility] Start: 1961 COVID-19 VACCINE (1) COVID-19 VACCIN E (1) [facility] Start: 1961 Hemoglobin A1c/Hemoglobin.total in Blood HBA1C [facility] Start: 04-22-1957 COVID-19 VACCINE (#1) COVID-19 VACCI NE (#1) [facility] Payers Date Payer Category Payer Medicare [employer] MEDICARE HU[employer] MEDICARE PPO [id number] 2021-Present [phone] [address] [address] [place] [address] PPO [id number] 2021 Medicare [id number] 2020 Unknown [id number] 2020 Unknown CRISTIAN FOSTER HI X [id number] 2020-Present [phone] [address] [address] [place] [address] O [id number] 1956 Unknown [id number] Unknown [id number] Social History Date Type Detail Facility Start: 11-01-2021 End: 12-01-2021 Tobacco smoking status NHIS Ex-smoker [facility] End: 03-11-1986 History of tobacco use Current smoker [facility] Start: 11-07-2015 End: 11-01-2021 Alcohol intake Not Asked [facility] Start: 1955 Sex Assigned At Not on file [facility] Start: 08-14-2021 End: 12-13-2021 Exposure to SARS-CoV-2 (event) Not sure [facility] End: 03-11-1986 History of tobacco use Cigarette Smoker [facility] Start: 12-01-2021 End: 07-18-2022 Cigarettes smoked current (pack per day) - Reported 2 [facility] Start: 12-01-2021 Tobacco use and exposure Smokeless tobacco non-user [facility] Start: 12-01-2021 End: 10-31-2022 Alcohol intake Current drinker of alcohol (finding) [facility] Start: 12-01-2021 History SDOH Alcohol Comment rare [facility] Start: 07-18-2022 End: 10-31-2022 Tobacco use panel [facility] National Score (1-10 0), lower number is lower risk 48 [facility] NEGATED: Highlighted rowStart: NINF History of tobacco use Passive smoker [facility] Clinical Notes 12-01-2021 to 08-23-202Blanca Hill MD - 10/31/2022 3:21 PM Tatyana Molina MD - 06/19/2022 3:46 PM Ron Sierra MD - 12/01/2021 11:20 AM EDT Note Date & Type Note Facility 10-31-2022 Procedure note CYSTOSCOPY PROCEDURE NOTE: PRE-OP/PRE-PROCEDURE DIAGNOSIS: History of bladder cancer POST-OP/POST-PROCEDURE DIAGNOSIS: Negative cystoscopy for recurrent disease SURGERY/PROCEDURE(S): Cystoscopy Aynana Rajan is a 67 year old female who presents with Bladder Tumor Follow-Up for cystoscopy. Pt ID verified with patient: Yes Procedure verified with patient: Yes Procedure confirmed with physician and is support analyst: Yes UNIVERSAL PROTOCOL / SAFETY CHECKLIST Procedure to be Performed: Cystoscopy Sign In: A Moment of CARE was completed. Personnel directly involved with the procedure wore the appropriate PPE (Personal Protective Equipment). Patient/Surrogate Stated/Verified: PATIENT VERIFIED(optional for EMERGENT procedures): Patient name, Date of , Relevant allergies, and The intended procedure Time Out Communication: Intended patient and procedure match the source documents. Consent documented and matches the intended procedure. Sign Out: SIGN OUT (optional for EMERGENT procedures): No specimen collected. Blanca Molina MD A urinalysis was performed revealing no evidence of infection. The benefits, risks, alternatives of the cystoscopy procedure and personnel were discussed with the patient. The verbal consent was obtained and the patient agrees to proceed. Procedure: The patient was placed on the procedure table in the supine position and prepped and draped in the usual sterile fashion. 2% Lidocaine Jelly was placed per urethra as an anesthetic in the standard fashion. Once adequate local anesthesia was achieved, the tip of the flexible cystoscope was carefully placed into the urethra under direct visual guidance. with no evidence of stricture. The bladder was entered and careful alexander endoscopy was carried out. The posterior, superior and lateral nguyen and dome of the bladder were all well visualized and the scope was retroflexed upon itself. The findings were consistent with no evidence of bladder mucosal pathology. The findings were consistent with smooth, not trabeculated. At the conclusion of the procedure, the flexible cystoscope was removed atraumatically. The patient tolerated the procedure without complications. Patient was given standard post-procedure instructions, and was directed to complete the course of oral antibiotics and increase oral fluid intake as directed. IMPRESSION: Negative cystoscopy for recurrent disease PLAN: Cystoscopy in 6 months Blanca Molina MD Electronically Signed: Blanca Molina MD October 31, 2022 3:21 PM This note was partially created using voice recognition software and is inherently subject to errors including those of syntax and sound-alike substitutions which may escape proofreading. In such instances, original meaning may be extrapolated by contextual derivation. documented in this encounter [facility] 06-19-2022 Note HNO ID: [id number] Author: Blanca Molina MD Service: ? Author Type: Physician Type: Progress Notes Filed: 06/19/2022 3:52 PM Note Text: [facility] [place] ESTABLISHED PATIENT OFFICE VISIT HISTORY OF PRESENT ILLNESS Ayanna Rajan is a 66 year old female who is here for follow up of history of bladder cancer. The first diagnosed in 2019 in the multiple biopsies was done afterwards were negative except the one back in August 2021 which was positive with undetermined grade of transitional cell carcinoma. Patient is diabetic and on insulin. She had cataract surgery for both eyes and developed a stroke following the first cataract surgery. Now she is complaining of urgency and urgency incontinence and occasional stress urinary incontinence. CT scan of abdomen and pelvis was done on 2019 and that was the time when she was diagnosed with bladder cancer. Review of Systems The remainder of the ROS was reviewed and is negative. LAB No results found for: CREAT No results found for: UGLUCPOC, UBILIPOC, UKETONPOC, USGPOC, UHBPOC, UPHPOC, UPROPOC, UUROPOC, UNITPOC, UWBCPOC, UCOLPOC, UCLARPOC] MEDICATIONS amLODIPine (NORVASC) 10 mg tablet atorvastatin (LIPITOR) 80 mg tablet Take by mouth. clopidogrel (PLAVIX) 75 mg tablet LEVEMIR U-100 INSULIN 100 unit/mL injection NOVOLIN R REGULAR U-100 INSULN 100 unit/mL injection potassium citrate ER (UROCIT-K) 5 mEq (540 mg) TbER potassium citrate 5 mEq (540 mg) tablet extended release lisinopril (PRINIVIL) 20 mg tablet Take 1 tablet by mouth twice daily. metFORMIN (GLUCOPHAGE) 1,000 mg tablet Take 1 tablet by mouth twice daily with meals. metFORMIN ER (GLUCOPHAGE XR) 750 mg 24 hr tablet Take 750 mg by mouth daily with breakfast. (Patient not taking: Reported on 06/19/2022) Ascorbic Acid 1,000 mg tablet Take by mouth. (Patient not taking: Reported on 06/19/2022) Cholecalciferol, Vitamin D3, 125 mcg (5,000 unit) cap insulin glargine (LANTUS) 100 unit/mL injection Inject 30 Units subcutaneously daily at bedtime. (Patient not taking: Reported on 12/01/2021) insulin NPH human (NOVOLIN N) injection Uses as needed pre meals (Patient not taking: Reported on 12/01/2021) hydrochlorothiazide (HYDRODIURIL, ESIDRIX) 25 mg tablet Take 0.5 tablets by mouth once daily. (Patient not taking: Reported on 06/19/2022) ZYRTEC 10 MG TAB Take one(1) tablet daily. (Patient not taking: Reported on 06/19/2022) PREMARIN 0.625 MG TAB Take one(1) tablet daily. (Patient not taking: Reported on 12/01/2021) 0 HISTORIES PAST MEDICAL HISTORY Diagnosis Date Abnormal urinalysis CVA (cerebral vascular accident) (HCC) DDD (degenerative disc disease), lumbar Essential hypertension, benign Flank pain GERD (gastroesophageal reflux disease) Hematuria Mass of urinary bladder Nausea Other forms of migraine Type II or unspecified type diabetes mellitus without mention of complication, not stated as uncontrolled Unspecified asthma(493.90) Urinary frequency PAST SURGICAL HISTORY Procedure Laterality Date BREAST SURGERY HX DELIVERY ONLY , low cervical EXC CYST/ABERRANT BREAST TISSUE OPEN LESION 04/22/2006 LEFT REMV CATARACT EXTRACAP,INSERT LENS TOTAL ABDOMINAL HYSTERECT W/WO RMVL TUBE OVARY Hysterectomy, LUIS UNKNOWN bladder cystoscopy in office 09/27,06/29,07/30 FAMILY HISTORY Problem Relation Age of Onset Allergies Mother Heart Mother Hypertension Mother Hearing Loss Mother DVT Mother SOCIAL HISTORY Social History Tobacco Use Smoking status: Former Packs/day: 2.00 Years: 25.00 Pack years: 50.00 Types: Cigarettes Quit date: 03/11/1986 Years since quittin.2 Passive exposure: Never Smokeless tobacco: Never Substance Use Topics Alcohol use: Yes Comment: rare Drug use: Never Resp 16 Ht 157.5 cm (5' 2 ) Wt 77.6 kg (171 lb) BMI 31.28 kg/m? Physical Exam Alert cooperative in no acute distress Normocephalic breathing not labored Mood is normal. ASSESSMENT AND PLAN: No problem-specific Assessment AND Plan notes found for this encounter. ASSESSMENT/PLAN: 1. Bladder tumor - ICD9: 239.4, ICD10: D49.4 (primary diagnosis) 2. Malignant neoplasm of urinary bladder, unspecified site (HCC) - ICD9: 188.9, ICD10: C67.9 We will need cystoscopy 3. Cerebrovascular accident (CVA), unspecified mechanism (HCC) - ICD9: 434.91, ICD10: I63.9 Need to stop Plavix 5 days before cystoscopy in case biopsy is needed 4. Urgency of urination - ICD9: 788.63, ICD10: R39.15 May need treatment at a later time 5. Mixed incontinence - ICD9: 788.33, ICD10: N39.46 Stress incontinence is minimal Blanca Molina MD This note was partially created using voice recognition software and is inherently subject to errors including those of syntax and sound-alike substitutions which may escape proofreading. In such instances, original meaning may be extrapolated by contextual (more content not included)... [facility] 06-19-2022 History of Presen t illness Narrative Images from the original note were not included. [facility] [place] ESTABLISHED PATIENT OFFICE VISIT HISTORY OF PRESENT ILLNESS Ayanna Rajan is a 66 year old female who is here for follow up of history of bladder cancer. The first diagnosed in 2019 in the multiple biopsies was done afterwards were negative except the one back in August 2021 which was positive with undetermined grade of transitional cell carcinoma. Patient is diabetic and on insulin. She had cataract surgery for both eyes and developed a stroke following the first cataract surgery. Now she is complaining of urgency and urgency incontinence and occasional stress urinary incontinence. CT scan of abdomen and pelvis was done on 2019 and that was the time when she was diagnosed with bladder cancer. Review of Systems The remainder of the ROS was reviewed and is negative. LAB No results found for: CREAT No results found for: UGLUCPOC, UBILIPOC, UKETONPOC, USGPOC, UHBPOC, UPHPOC, UPROPOC, UUROPOC, UNITPOC, UWBCPOC, UCOLPOC, UCLARPOC] MEDICATIONS amLODIPine (NORVASC) 10 mg tablet atorvastatin (LIPITOR) 80 mg tablet Take by mouth. clopidogrel (PLAVIX) 75 mg tablet LEVEMIR U-100 INSULIN 100 unit/mL injection NOVOLIN R REGULAR U-100 INSULN 100 unit/mL injection potassium citrate ER (UROCIT-K) 5 mEq (540 mg) TbER potassium citrate 5 mEq (540 mg) tablet extended release lisinopril (PRINIVIL) 20 mg tablet Take 1 tablet by mouth twice daily. metFORMIN (GLUCOPHAGE) 1,000 mg tablet Take 1 tablet by mouth twice daily with meals. metFORMIN ER (GLUCOPHAGE XR) 750 mg 24 hr tablet Take 750 mg by mouth daily with breakfast. (Patient not taking: Reported on 06/19/2022) Ascorbic Acid 1,000 mg tablet Take by mouth. (Patient not taking: Reported on 06/19/2022) Cholecalciferol, Vitamin D3, 125 mcg (5,000 unit) cap insulin glargine (LANTUS) 100 unit/mL injection Inject 30 Units subcutaneously daily at bedtime. (Patient not taking: Reported on 12/01/2021) insulin NPH human (NOVOLIN N) injection Uses as needed pre meals (Patient not taking: Reported on 12/01/2021) hydrochlorothiazide (HYDRODIURIL, ESIDRIX) 25 mg tablet Take 0.5 tablets by mouth once daily. (Patient not taking: Reported on 06/19/2022) ZYRTEC 10 MG TAB Take one(1) tablet daily. (Patient not taking: Reported on 06/19/2022) PREMARIN 0.625 MG TAB Take one(1) tablet daily. (Patient not taking: Reported on 12/01/2021) 0 HISTORIES PAST MEDICAL HISTORY Diagnosis Date Abnormal urinalysis CVA (cerebral vascular accident) (HCC) DDD (degenerative disc disease), lumbar Essential hypertension, benign Flank pain GERD (gastroesophageal reflux disease) Hematuria Mass of urinary bladder Nausea Other forms of migraine Type II or unspecified type diabetes mellitus without mention of complication, not stated as uncontrolled Unspecified asthma(493.90) Urinary frequency PAST SURGICAL HISTORY Procedure Laterality Date BREAST SURGERY HX DELIVERY ONLY , low cervical EXC CYST/ABERRANT BREAST TISSUE OPEN / LESION 04/22/2006 LEFT REMV CATARACT EXTRACAP,INSERT LENS TOTAL ABDOMINAL HYSTERECT W/WO RMVL TUBE OVARY Hysterectomy, LUIS UNKNOWN bladder cystoscopy in office 09/27,06/29,07/30 FAMILY HISTORY Problem Relation Age of Onset Allergies Mother Heart Mother Hypertension Mother Hearing Loss Mother DVT Mother SOCIAL HISTORY Social History Tobacco Use Smoking status: Former Packs/day: 2.00 Years: 25.00 Pack years: 50.00 Types: Cigarettes Quit date: 03/11/1986 Years since quittin.2 Passive exposure: Never Smokeless tobacco: Never Substance Use Topics Alcohol use: Yes Comment: rare Drug use: Never Resp 16 Ht 157.5 cm (5' 2 ) Wt 77.6 kg (171 lb) BMI 31.28 kg/m Physical Exam Alert cooperative in no acute distress Normocephalic breathing not labored Mood is normal. ASSESSMENT & PLAN: No problem-specific Assessment & Plan notes found for this encounter. ASSESSMENT/PLAN: 1. Bladder tumor - ICD9: 239.4, ICD10: D49.4 (primary diagnosis) 2. Malignant neoplasm of urinary bladder, unspecified site (HCC) - ICD9: 188.9, ICD10: C67.9 We will need cystoscopy 3. Cerebrovascular accident (CVA), unspecified mechanism (HCC) - ICD9: 434.91, ICD10: I63.9 Need to stop Plavix 5 days before cystoscopy in case biopsy is needed 4. Urgency of urination - ICD9: 788.63, ICD10: R39.15 May need treatment at a later time 5. Mixed incontinence - ICD9: 788.33, ICD10: N39.46 Stress incontinence is minimal Blanca Molina MD This note was partially created using voice recognition software and is inherently subject to errors including those of syntax and sound-alike substitutions which may escape proofreading. In such instances, original meaning may be extrapolated by contextual derivation. documented in this encounter [facility] 12-01-2021 Note HNO ID: [id number] Author: Julio Sierra MD Service: ? Author Type: Physician Type: Procedures Filed: 01/29/2022 11:23 AM Note Text: Female Procedure Note 12/01/21 Preop Diagnosis: Bladder tumor Posop Diagnosis: The same Procedure: Cystoscopy Anesthesia: None Patient laying on the table in supine position a 14 fr flexible cystoscope inserted in the urethra The Urethra was normal The bladder was inspected and it showed a normal mucosa there was no any evidence of recurrence of the bladder tumor. Both ureteral orifice were identified and were normal in shape and position. The cystoscope then deflected backward and the anterior bladder wall was inspected which was found to be normal including the bladder neck Julio Sierra MD [facility] 12-01-2021 Note HNO ID: [id number] Author: Julio Sierra MD Service: ? Author Type: Physician Type: Progress Notes Filed: 12/01/2021 10:19 AM Note Text: Female Procedure Note 12/01/21 Preop Diagnosis: Bladder tumor Posop Diagnosis: The same Procedure: Cystoscopy Anesthesia: None Patient laying on the table in supine position a 14 fr flexible cystoscope inserted in the urethra The Urethra was normal The bladder was inspected and it showed a normal mucosa there was no any evidence of recurrence of the bladder tumor. Both ureteral orifice were identified and were normal in shape and position. The cystoscope then deflected backward and the anterior bladder wall was inspected which was found to be normal including the bladder neck Julio Sierra MD [facility] 12-01-2021 Procedure note Procedure(s): CYSTOSCOPY Female Procedure Note 12/01/21 Preop Diagnosis: Bladder tumor Posop Diagnosis: The same Procedure: Cystoscopy Anesthesia: None Patient laying on the table in supine position a 14 fr flexible cystoscope inserted in the urethra The Urethra was normal The bladder was inspected and it showed a normal mucosa there was no any evidence of recurrence of the bladder tumor. Both ureteral orifice were identified and were normal in shape and position. The cystoscope then deflected backward and the anterior bladder wall was inspected which was found to be normal including the bladder neck Julio Sierra MD documented in this encounter [facility] 12-01-2021 Miscellaneous Notes Addended by: JULIO SIERRA on: 12/01/2021 10:25 AM Modules accepted: Orders documented in this encounter [facility] 12-01-2021 History of Presen t illness Narrative Female Procedure Note 12/01/21 Preop Diagnosis: Bladder tumor Posop Diagnosis: The same Procedure: Cystoscopy Anesthesia: None Patient laying on the table in supine position a 14 fr flexible cystoscope inserted in the urethra The Urethra was normal The bladder was inspected and it showed a normal mucosa there was no any evidence of recurrence of the bladder tumor. Both ureteral orifice were identified and were normal in shape and position. The cystoscope then deflected backward and the anterior bladder wall was inspected which was found to be normal including the bladder neck Julio Sierra MD documented in this encounter [facility] Evaluation + Plan note No data available for this section [facility] Diagnosis Bladder tumor- Primary Neoplasm of unspecified nature of bladder [facility] Diagnosis Bladder tumor- Primary Neoplasm of unspecified nature of bladder Malignant neoplasm of urinary bladder, unspecified site (HCC) Cerebrovascular accident (CVA), unspecified mechanism (HCC) Urgency of urination Mixed incontinence Mixed incontinence urge and stress (male)(female) [facility] Diagnosis Screening for genitourinary condition [Z13.89]- Primary Screening for other and unspecified genitourinary condition [facility] No data available for this section [facility] Progress note No data available for this section [facility] Summary Purpose Family History No Family History Records FoundNo Family History Records FoundNo Family History Records FoundNo Family History Records Found Advance Directives No Advanced Directives Records FoundNo Advanced Directives Records FoundNo Advanced Directives Records FoundNo Advanced Directives Records Found Additional Source Comments INFORMATION SOURCE (unrecogn ized section and content) DATE CREATED AUTHOR AUTHOR'S ORGANIZ ATION 10/14/2021 [facility] DATE CREATED AUTHOR AUTHOR'S ORGANIZ ATION 06/20/2022 [facility] DATE CREATED AUTHOR AUTHOR'S ORGANIZ ATION 10/25/2022 [facility] Source Comments (unrecognize d section and content) In the event this informatio n is protected by the Federal Confidentiality of Alcohol and Drug Abuse Patient Records regulations: The Federal rules restrict any use of the information to criminally investigate or prosecute any alcohol or drug abuse patient.[facility] event this information is protected by the Federal Confidentiality of Alcohol and Drug Abuse Patient Records regulations: The Federal rules restrict any use of the information to criminally investigate or prosecute any alcohol or drug abuse patient.[facility] the event this information is protected by the Federal Confidentiality of Alcohol and Drug Abuse Patient Records regulations: The Federal rules restrict any use of the information to criminally investigate or prosecute any alcohol or drug abuse patient.[facility] the event this information is protected by the Federal Confidentiality of Alcohol and Drug Abuse Patient Records regulations: The Federal rules restrict any use of the information to criminally investigate or prosecute any alcohol or drug abuse patient.[facility] the event this information is protected by the Federal Confidentiality of Alcohol and Drug Abuse Patient Records regulations: The Federal rules restrict any use of the information to criminally investigate or prosecute any alcohol or drug abuse patient.[facility] the event this information is protected by the Federal Confidentiality of Alcohol and Drug Abuse Patient Records regulations: The Federal rules restrict any use of the information to criminally investigate or prosecute any alcohol or drug abuse patient.[facility] the event this information is protected by the Federal Confidentiality of Alcohol and Drug Abuse Patient Records regulations: The Federal rules restrict any use of the information to criminally investigate or prosecute any alcohol or drug abuse patient.[facility] the event this information is protected by the Federal Confidentiality of Alcohol and Drug Abuse Patient Records regulations: The Federal rules restrict any use of the information to criminally investigate or prosecute any alcohol or drug abuse patient.[facility] the event this information is protected by the Federal Confidentiality of Alcohol and Drug Abuse Patient Records regulations: The Federal rules restrict any use of the information to criminally investigate or prosecute any alcohol or drug abuse patient.[facility] Care Teams (unrecognized sec tion and content) Refinish Technician Relationship Specialty Start Date End Date Rosa Maria Dave CNP [address] [place] [address] PCP - General Internal Medicine 11/10/20 Guillermo Elam [address] [facility] [address] Referring Podiatry 11/10/20 Refinish Technician Relationship Specialty Start Date End Date Rosa Maria Dave CNP [address] [place] [address] PCP - General Internal Medicine 11/10/20 Guillermo Elam [address] [place] [address] Referring Podiatry 11/10/20 Refinish Technician Relationship Specialty Start Date End Date Rosa Maria Dave CNP [address] [place] [address] PCP - General Internal Medicine 11/10/20 Guillermo Elam [address] [facility] [place] [place] [address] Referring Podiatry 11/10/20 Refinish Technician Relationship Specialty Start Date End Date Rosa Maria Dave CNP [address] [place] [address] PCP - General Internal Medicine 11/10/20 Guillermo Elam [address] [facility] [place] [place] [address] Referring Podiatry 11/10/20 Refinish Technician Relationship Specialty Start Date End Date Rosa Maria Dave CNP [address] [place] [address] PCP - General Internal Medicine 11/10/20 Guillermo Elam [address] [facility] [place] [place] [address] Referring Podiatry 11/10/20 Refinish Technician Relationship Specialty Start Date End Date Rosa Maria Dave CNP [address] [place] [address] PCP - General Internal Medicine 11/10/20 Guillermo Elam [address] [facility] [place] [place] [address] Referring Podiatry 11/10/20 Refinish Technician Relationship Specialty Start Date End Date Rosa Maria Dave CNP [address] [place] [address] PCP - General Internal Medicine 11/10/20 JacquelineGuillermo cerrato [address] [place] [address] Referring Podiatry 11/10/20 Reason for Visit (unrecogniz ed section and content) Reason Comments Bladder Cancer Reason Comments Bladder Cancer 3 mo cysto for CAB. FOR RECORDS PERTAINING TO PATIENTS WHO ARE OR HAVE BEEN ENROLLED IN A CHEMICAL DEPENDENCY/SUBSTANCEABUSE PROGRAM, SOME INFORMATION MAY BE OMITTED. This clinical summary was aggregated from multiple sources. Caution should be exercised in using it in the provision of clinical care. This summary normalizes information from multiple sources, and as a consequence, information in this document may materially change the coding, format and clinical context of patient data. In addition, data may be omitted in some cases. CLINICAL DECISIONS SHOULD BE BASED ON THE PRIMARY CLINICAL RECORDS. [employer] provides no warranty or guarantee of the accuracy or completeness of information in this document.
--- NOTE | 2023-04-04 12:28 | CT_ITS ---
STUDY: CT ABDOMEN AND PELVIS WITH CONTRAST REASON FOR EXAM: Female, 67 years old. Left upper quadrant abdominal pain, abdominal mass RADIATION DOSAGE (If Supplied By Facility): CTDIvol = ( 11.08 ) mGy, DLP = ( 707.35 ) mGycm TECHNIQUE: Transaxial images were obtained from the dome of the diaphragm to the symphysis pubis without oral contrast. IV 100mL Isovue-300 was administered. Sagittal and coronal images were reconstructed. Individualized dose optimization techniques were used for this CT. COMPARISON: Comparison is made with prior sonogram dated September 03, 2022. FINDINGS: The visualized lung bases are unremarkable. Coronary artery calcification. There is a mild degree of hepatomegaly with diffuse hepatic enlargement. Mild fatty infiltration of the liver. Normal gallbladder and extrahepatic biliary system. Normal spleen. Normal pancreas. Normal bilateral adrenal glands. Normal right kidney. Normal left kidney. Normal visualized stomach. Normal small intestine. There are scattered colonic diverticula consistent with diverticulosis. The appendix is visualized and appears normal. There is diffuse atherosclerotic calcification of the abdominal aorta, without a demonstrated aneurysm. Normal inferior vena cava. Normal retroperitoneum. Normal urinary bladder. There is absence of the uterus consistent with a prior hysterectomy. There is a small umbilical hernia containing fat. There are diffuse degenerative changes of the visualized lumbar spine. CT/Abdomen/Pelvis W IV Cont ONLY IMPRESSION: Mild hepatomegaly and fatty infiltration of the liver. Scattered sigmoid diverticula. Electronically Signed: Beltran Bull MD at 12:49 EST ,
[2023-04-04 13:26] VITALS: PULSE 74; RESP 14
== END 2023-04-04 13:50 | disposition home or self-care (01) ==
PROVIDERS: Emergency Provider Emergency Medicine; Visit Provider Emergency Medicine
DX: E11.65 Type 2 diabetes mellitus with hyperglycemia (principal); K52.9 Noninfective gastroenteritis and colitis, unspecified; M79.603 Pain in arm, unspecified; K76.0 Fatty (change of) liver, not elsewhere classified; R19.00 Intra-abdominal and pelvic swelling, mass and lump, unspecified site; Z87.891 Personal history of nicotine dependence; E78.00 Pure hypercholesterolemia, unspecified
CPT/HCPCS: 74177; 80053; 81001; 83690; 85025; 99283; Q9967; A4216

== ENCOUNTER → 2023-06-08 | Outpatient (CLI) | payer MEDICARE, SELFPAY ==
[2023-06-08 10:01] LABS: Absolute Lymphocyte Count 2.23 X10^3/uL (0.83-4.51); Absolute Neutrophil Count 3.8 X10^3/uL (2.0-7.7); Basophil# 0.03 X10^3/uL; Basophil% 0.4 % (0-1); Eosinophil# 0.08 X10^3/uL; Eosinophils% 1.2 % (0-5); Hematocrit 36.7 % (37-47); Hemoglobin 12.1 g/dL (12.0-15.0); Lymphocyte # 2.23 X10^3/ul (0.83-4.51); Lymphocyte % 33.4 % (19-41); Mean Corpuscular Hgb 28.9 pg (27.0-32.0); Mean Corpuscular Volume 87.6 fL (81-99); Mean Platelet Vol. 10.1 fl (6.2-12.0); Monocyte% 7.5 % (0-10); NRBC Flagged by Analyzer 0 % (0-5); Neutrophil # 3.82 X10^3/uL (2.7-7.7); Neutrophil % 57.2 % (47-70); Platelet Count 262 K/mm3 (150-450); RBC Distribution Width CV 12.4 % (11.6-14.6); RBC Distribution Width SD 39.8 fl (35.1-43.9); Red Blood Count 4.19 M/mm3 (4.2-5.4); White Blood Count 6.7 K/mm3 (4.4-11.0)
[2023-06-08 10:29] LABS: Hemoglobin A1c 6.8 % (3.8-5.6)
[2023-06-08 10:36] LABS: AST(SGOT) 14 U/L (15-37); Alanine Aminotransfer ALT/SGPT 25 U/L (13-56); Albumin, Serum 3.8 g/dL (3.2-5.0); Alkaline Phosphatase 125 U/L (45-117); Anion Gap 5 (5-15); BUN 17 mg/dL (7-18); Calcium,Total 8.8 mg/dL (8.5-10.1); Chloride 107 mmol/L (98-107); Cholesterol 123 mg/dL (200); EST Glomerular Filtration Rate 67 mL/min (>60); Est Glom Filt Rate - Afr Amer 81 mL/min (>60); Globulin 3.7 g/dL (2.2-4.2); Glucose 127 mg/dL (74-106); High Density Lipoprotein 42 mg/dL; Protein, Total 7.5 g/dL (6.4-8.2); Sodium Level 138 mmol/L (136-145); Thyroid Stim Hormone (TSH) 1.91 uIU/mL (0.358-3.74); Triglycerides 136 mg/dL; Very Low Density Lipoprotein 27 mg/dL (5-40)
[2023-06-08 10:39] LABS: Microalbumin,Random Urine 5.8 mg/L (NO RANGE EST.); Microalbumin:Creatinine Ratio 28.3 mg/g CRE (<30 mg/g CRE)
[2023-06-10 09:44] LABS: Vitamin B12 721 pg/mL (211-911); Vitamin D,25 Hydroxy 53.1 ng/mL
== END | disposition home or self-care (01) ==
LOC: LAB 08:59
PROVIDERS: PCP Internal Medicine; Referring Provider Internal Medicine; Visit Provider Internal Medicine
DX: E11.9 Type 2 diabetes mellitus without complications (principal); I10 Essential (primary) hypertension; E78.00 Pure hypercholesterolemia, unspecified; E55.9 Vitamin D deficiency, unspecified
CPT/HCPCS: 36415; 80053; 80061; 82043; 82306; 82570; 82607; 83036; 84443; 85025

== ENCOUNTER → 2023-06-21 | Outpatient (CLI) | payer MEDICARE, SELFPAY ==
--- NOTE | 2023-06-21 12:11 | BD_ITS ---
STUDY: DUAL ENERGY X-RAY ABSORPTIOMETRY / DXA REASON FOR EXAM: Female, 67 years old. 627.8Menopausal postmenopausalBONE DENSITY REASON FOR EXAM TECHNIQUE: Bone Mineral Density (BMD) measurements of lumbar spine and bilateral hips were obtained. COMPARISON: None. FINDINGS: Lumbar Spine (L1-L4): g/cm2 (1.004) / T-score (-0.4) / Z-score (1.4) Findings are suggestive of normal bone density with a low fracture risk. Left Femur Total: g/cm2 (0.867) / T-score (-0.6) / Z-score (0.7) Left Femoral Neck: g/cm2 (0.721) / T-score (-1.2) / Z-score (0.5) Right Femur Total: g/cm2 (0.836) / T-score (-0.9) / Z-score (0.4) Right Femoral Neck: g/cm2 (0.693) / T-score (-1.4) / Z-score (0.2) BD/Dexa Bone Density Study IMPRESSION: The patient is considered osteopenic as outlined below according to World [employer] Organization (WHO) criteria with a low fracture risk. Reference Information: The T-score is the number of standard deviations above or below the standard which is normal for young adults at their peak bone mineral density. The World Health Organization (WHO) interprets the T-scores as follows: Above -1 Normal bone density Between -1 and -2.5 Osteopenia Equal to / or below -2.5 Osteoporosis As a practical clinical guideline, osteopenia may be graded as follows: Mild -1 through -1.5 Moderate -1.6 through -2.0 Severe -2.1 through -2.4 The Z-score is the number of standard deviations above or below age-matched controls. A Z-score of less than -1.5 would be considered abnormal. References: 1. NIH Osteoporosis and Related Bone Diseases www osteo.org 2. International Society for Clinical Densitometry www iscd.org 3. National Osteoporosis Foundation www nof.org Electronically Signed: Beltran Bull MD at 10:24 EDT ,
--- NOTE | 2023-06-21 12:11 | BI_ITS ---
MAMMOGRAPHY - BILATERAL SCREENING REASON FOR EXAM: Female, 67 years old. Routine annual screening examination. PERTINENT HISTORY: Non-contributory. TECHNIQUE: Digital bilateral breast karly (3D mammographic acquisition) in the CC and MLO projections. 2-D mediolateral oblique (MLO) and craniocaudad (CC) views of both breasts were obtained. CAD: Full Field Digital Mammography with Computer Added Detection was performed. COMPARISON: Comparison is made with prior outside examination dated April 15, 2006. FINDINGS: Breast Composition: The breasts are almost entirely fatty. Since prior examination, there is evidence of increased number of microcalcifications in the medial retroareolar region of the left breast. Biopsy recommended. No other significant abnormalities are identified. BI/SCRN MAMM (CAD)W/KARLY BILAT IMPRESSION: Increased number of microcalcifications in the medial retroareolar region of the left breast as described. Biopsy recommended. ASSESSMENT CATEGORY: BIRADS Category 4: Suspicious - Biopsy Should Be Considered. A letter regarding these results will be sent to the patient by the facility within 30 days. Approximately 10% of breast cancers are not detected by mammography. A normal mammogram should not delay biopsy of a clinically suspicious abnormality. [id number] Electronically Signed: Beltran Bull MD at 13:26 EDT ,
== END | disposition home or self-care (01) ==
LOC: OPBD 12:09
PROVIDERS: PCP Internal Medicine; Referring Provider Internal Medicine; Visit Provider Internal Medicine
DX: Z12.31 Encounter for screening mammogram for malignant neoplasm of breast (principal); Z78.0 Asymptomatic menopausal state
CPT/HCPCS: 77063; 77067; 77080

== ENCOUNTER → 2023-07-01 | Outpatient (CLI) | payer MEDICARE, SELFPAY ==
--- NOTE | 2023-07-01 11:08 | OP.PCM_ITS ---
Report of Operation Date of Procedure: 07/01/23 Pre-Operative Diagnosis: Left breast calcifications Post-Operative Diagnosis: Same Surgery/Procedure Performed:: Stereotactic guided left breast core biopsy Type of Anesthesia: Local MAC Specimen's removed: Left breast specimens Description of Procedure: Patient was placed on the stereotactic table and spot images were taken and the calcifications were selected. Stereotactic images were selected and the computer was program. Next the skin was prepped and injected with local anesthetic. A small incision was made with a scalpel. The needle was placed into the breast and fired. Specimens were then obtained in a clockwise fashion and they were sent for x-ray. X-rays revealed calcifications in the specimen. Next the clip was placed into the biopsy cavity and the needle was removed. Another image confirmed that the clip was in place. Next a Steri-Strip and bandage were placed over the incision and the patient will be sent for pos tprocedural mammogram. She was given postoperative instructions and I will call her with results.
--- NOTE | 2023-07-01 11:10 | BRBX_PTH ---
PATIENT: MARLEN GRACE LOC: [facility] U#:[id number] AGE/SX: 67/F ROOM: RE07/01/[address]: Dr. Nakul Bronson MD : [id number] BED: DIS: 07/01/2023 SPEC #: [id number] RECD: 07/01/23 11:23 STATUS: ZULMA REValarie #: [id number] MORRIS: 07/01/23 11:[address]: Nakul Bronson DEPT: SURGICAL PATHOLOGY RECD BY: Charissa Artis ENTERED: 07/01/23 11:40 SP TYPE: BREAST BX OTHR DR: Dr. Salazar Mcloed MD Tissues: Left breast, NOS Procedures: Surgery Specimen Level IV HEADER OPERATION: Left breast stereotactic biopsy PRE-OP DIAGNOSIS: Increased number of microalcifications in the medial retro areolar region of left breast TISSUE SUBMITTED: Left breast MICROSCOPIC DIAGNOSIS Left breast, stereotactic core biopsy: Fibrocystic changes and intraductal hyperplasia without atypia. Focal dense fibrosis with associated calcifications. Negative for malignancy. See comment. / 07/02/2023 COMMENT Correlation with clinical, radiologic findings and appropriate follow up are necessary. MICROSCOPIC DESCRIPTION Slides are reviewed. GROSS DESCRIPTION Received is one container labeled with the patient's name and not further designated. The specimen consists of multiple elongated fragments of gold-yellow fibro adipose tissue measuring in aggregate 5.0 x 3.0 x 0.3cm. The entire specimen is submitted in one cassette. / 07/01/2023 TC:5 Ischemic Time: 1 minute Fixation Time: 8.5 hours CPT:18258
== END | disposition home or self-care (01) ==
PROVIDERS: PCP Internal Medicine; Visit Provider Surgery
DX: N60.12 Diffuse cystic mastopathy of left breast (principal)
CPT/HCPCS: 19081; 88305; J7050; A4648

== ENCOUNTER → 2024-01-13 | Outpatient (CLI) | payer MEDICARE, SELFPAY ==
[2024-01-13 09:39] LABS: Absolute Lymphocyte Count 2.55 X10^3/uL (0.83-4.51); Absolute Neutrophil Count 4.7 X10^3/uL (2.0-7.7); Basophil# 0.03 X10^3/uL; Basophil% 0.4 % (0-1); Eosinophil# 0.07 X10^3/uL; Eosinophils% 0.9 % (0-5); Hematocrit 38.9 % (37-47); Hemoglobin 12.4 g/dL (12.0-15.0); Lymphocyte # 2.55 X10^3/ul (0.83-4.51); Lymphocyte % 32.3 % (19-41); Mean Corp Hgb Conc 31.9 g/dL (32-36); Mean Corpuscular Hgb 28.3 pg (27.0-32.0); Mean Corpuscular Volume 88.8 fL (81-99); Monocyte# 0.52 X10^3/uL; Monocyte% 6.6 % (0-10); NRBC Flagged by Analyzer 0 % (0-5); Neutrophil % 59.5 % (47-70); Platelet Count 278 K/mm3 (150-450); RBC Distribution Width CV 13.2 % (11.6-14.6); RBC Distribution Width SD 42.8 fl (35.1-43.9); RET-HE 32.3 pg (30-35); Red Blood Count 4.38 M/mm3 (4.2-5.4); Reticulocyte Count 1.41 % (0.5-1.5); White Blood Count 7.9 K/mm3 (4.4-11.0)
[2024-01-13 10:28] LABS: Vitamin D,25 Hydroxy 52.2 ng/mL
[2024-01-13 10:57] LABS: Microalbumin,Random Urine 6.4 mg/L (NO RANGE EST.); Microalbumin:Creatinine Ratio 28.7 mg/g CRE (<30 mg/g CRE)
[2024-01-13 11:32] LABS: AST(SGOT) 17 U/L (15-37); Alanine Aminotransfer ALT/SGPT 29 U/L (13-56); Albumin, Serum 3.9 g/dL (3.2-5.0); Alkaline Phosphatase 111 U/L (45-117); Anion Gap 11 (5-15); BUN 18 mg/dL (7-18); BUN/Creat Ratio 19.5 RATIO (10-20); Calcium,Total 9.2 mg/dL (8.5-10.1); Chloride 108 mmol/L (98-107); Cholesterol 127 mg/dL (200); Creatinine, Serum 0.92 mg/dL (0.55-1.02); EST Glomerular Filtration Rate 65 mL/min (>60); Est Glom Filt Rate - Afr Amer 78 mL/min (>60); Ferritin 57 ng/mL (8-252); Globulin 3.9 g/dL (2.2-4.2); Glucose 87 mg/dL (74-106); High Density Lipoprotein 43 mg/dL; Iron 74 ug/dL (50-170); Iron Binding Capacity,Total 323 ug/dL (250-450); PERCENT IRON SATURATION 22.9 % (15.0-55.0); Potassium 3.8 mmol/L (3.5-5.1); Protein, Total 7.8 g/dL (6.4-8.2); Sodium Level 141 mmol/L (136-145); Triglycerides 177 mg/dL; Very Low Density Lipoprotein 35 mg/dL (5-40)
[2024-01-13 11:38] LABS: Hemoglobin A1c 7.1 % (3.8-5.6)
== END | disposition home or self-care (01) ==
LOC: LAB 08:47
PROVIDERS: PCP Internal Medicine; Referring Provider Internal Medicine; Visit Provider Internal Medicine
DX: D64.9 Anemia, unspecified (principal); E11.9 Type 2 diabetes mellitus without complications; E78.00 Pure hypercholesterolemia, unspecified; E55.9 Vitamin D deficiency, unspecified
CPT/HCPCS: 36415; 80053; 80061; 82043; 82306; 82570; 82728; 82746; 83036; 83540; 83550; 85025; 85045

== ENCOUNTER → 2024-02-13 | Outpatient (CLI) | payer MEDICARE, SELFPAY ==
--- NOTE | 2024-02-13 13:56 | CDU_ITS ---
Reason For Study: Dizziness Rt. Velocities/BP Lt. Velocities/BP Prox CCA 98.1/8 cm/sec. Prox CCA 87.1/15.8 cm/sec. Mid CCA 75.1/14.6 cm/sec. Mid CCA 80.9/17.1 cm/sec. Dist CCA 72.9/14.6 cm/sec. Dist CCA 79.7/17.1 cm/sec. Prox ICA 101/24.3 cm/sec. Prox ICA 94.8/27.2 cm/sec. Mid ICA 90/18.8 cm/sec. Mid ICA 98.4/23.6 cm/sec. Dist ICA 73.7/20.7 cm/sec. Dist ICA 94.8/23.6 cm/sec. Rt. ICA/CCA = 1.34. Lt. ICA/CCA = 1.22. Prox ECA 204.6/13.9 cm/sec. Prox ECA 103.9/10.8 cm/sec. Lt. Vert. 52.8/18.1 cm/sec. Right Extracranial There is homogeneous, smooth atherosclerotic plaque noted in the right common carotid artery. There is heterogeneous, irregular atherosclerotic plaque noted in the right internal carotid artery. There is heterogeneous, irregular atherosclerotic plaque noted in the right external carotid artery. Unable to visualize right vertebral artery. Left Extracranial There is intimal thickening but no significant atherosclerotic plaque noted in the left common carotid artery. There is heterogeneous, irregular atherosclerotic plaque noted in the left internal carotid artery. There is intimal thickening but no significant atherosclerotic plaque noted in the left external carotid artery. Antegrade flow is noted in the left vertebral artery. Procedure Carotid Duplex 10133. This is a Carotid Duplex examination using B-mode, color flow and specral Doppler. Exam performed in department. VL/Carotid Duplex Ultrasound Interpretation Summary Mild (<50%) stenosis right extracranial internal carotid. Mild (<50%) stenosis left extracranial internal carotid. The Right vertebral artery is not visualized. The Left vertebral is patent and antegrade. Ordering Physician: Salazar Mcleod Referring Physician: Salazar Mcleod Performed By: Sandra Haro RVT
== END | disposition home or self-care (01) ==
LOC: CVS 13:54
PROVIDERS: PCP Internal Medicine; Referring Provider Internal Medicine; Visit Provider Internal Medicine
DX: R42 Dizziness and giddiness (principal)
CPT/HCPCS: 93880

== ENCOUNTER → 2024-07-20 | Outpatient (CLI) | payer MEDICARE, SELFPAY ==
[2024-07-20 09:43] LABS: Absolute Lymphocyte Count 1.94 X10^3/uL (0.83-4.51); Absolute Neutrophil Count 4.5 X10^3/uL (2.0-7.7); Basophil# 0.04 X10^3/uL; Basophil% 0.6 % (0-1); Eosinophil# 0.06 X10^3/uL; Eosinophils% 0.8 % (0-5); Hematocrit 37.9 % (37-47); Hemoglobin 12.3 g/dL (12.0-15.0); Lymphocyte # 1.94 X10^3/ul (0.83-4.51); Lymphocyte % 27.2 % (19-41); Mean Corp Hgb Conc 32.5 g/dL (32-36); Mean Corpuscular Hgb 29.1 pg (27.0-32.0); Mean Corpuscular Volume 89.6 fL (81-99); Mean Platelet Vol. 10.1 fl (6.2-12.0); Monocyte# 0.53 X10^3/uL; Monocyte% 7.4 % (0-10); NRBC Flagged by Analyzer 0 % (0-5); Neutrophil # 4.53 X10^3/uL (2.7-7.7); Neutrophil % 63.7 % (47-70); Platelet Count 255 K/mm3 (150-450); RBC Distribution Width CV 12.7 % (11.6-14.6); RBC Distribution Width SD 41.5 fl (35.1-43.9); Red Blood Count 4.23 M/mm3 (4.2-5.4); White Blood Count 7.1 K/mm3 (4.4-11.0)
[2024-07-20 09:58] LABS: Hemoglobin A1c 8.1 % (<=5.6)
[2024-07-20 09:58] LABS: Microalbumin,Random Urine < 12.0 mg/L (NO RANGE EST.); Microalbumin:Creatinine Ratio UNABLE TO CALCULATE mg/g CRE
[2024-07-20 10:27] LABS: ALB/GLOB Ratio 1.4 RATIO (0.9-2.4); AST(SGOT) 23 U/L (<=31); Alanine Aminotransfer ALT/SGPT 18 U/L (<=34); Albumin, Serum 4.2 g/dL (3.4-4.8); Alkaline Phosphatase 117 U/L (35-104); Anion Gap 10 (5-15); BUN 16 mg/dL (4-19); BUN/Creat Ratio 19.8 RATIO (10-20); Carbon Dioxide 25.3 mmol/L (21.0-32.0); Chloride 106 mmol/L (98-108); Cholesterol 122 mg/dL (<=200); EST Glomerular Filtration Rate 80 (>60); Glucose 113 mg/dL (70-99); High Density Lipoprotein 39 mg/dL; Low Density Lipoprotein Calc. 56 mg/dL; Potassium 5.2 mmol/L (3.3-5.1); Protein, Total 7.3 g/dL (5.9-8.4); Sodium Level 142 mmol/L (133-145); Total Bilirubin 0.36 mg/dL (0.00-1.30); Triglycerides 136 mg/dL; Very Low Density Lipoprotein 27 mg/dL (5-40); cholesterol:hdl ratio screen 3.17
[2024-07-20 10:28] LABS: Vitamin D,25 Hydroxy 45.2 ng/mL (30-100)
== END | disposition home or self-care (01) ==
PROVIDERS: PCP Internal Medicine; Referring Provider Internal Medicine; Visit Provider Internal Medicine
DX: Z13.9 Encounter for screening, unspecified (principal); E11.9 Type 2 diabetes mellitus without complications; I65.23 Occlusion and stenosis of bilateral carotid arteries; I10 Essential (primary) hypertension; E78.00 Pure hypercholesterolemia, unspecified; E66.811 Obesity, class 1; E55.9 Vitamin D deficiency, unspecified
CPT/HCPCS: 36415; 80053; 80061; 82043; 82306; 82570; 83036; 84443; 85025

== ENCOUNTER → 2024-09-16 | Outpatient (CLI) | payer MEDICARE, SELFPAY ==
--- NOTE | 2024-09-16 06:50 | ECHOD_ITS ---
Reason For Study Reason For Study: DYSPNEA Procedure This was a 2D Doppler, Color Flow transthoracic echocardiogram. Exam performed in department. Left Ventricle Normal left ventricle. Left ventricular systolic function is normal. The left ventricular ejection fraction is 65 %. Stage 1 diastolic dysfunction. No regional wall motion abnormalities noted. Right Ventricle Normal RV size. Normal systolic function. Tricuspid Valve Normal tricuspid valve. Mild tricuspid valve insufficiency. Pulmonary artery systolic pressure is 24 mmHg. Aortic Valve Trisinus/trileaflet aortic valve. Mild focal aortic valve calcification. Peak aortic valve gradient 13 mmHg. Mean aortic valve gradient 7 mmHg. Mild (1+) aortic valve insufficiency. Pulmonic Valve Normal pulmonic valve. Great Vessels Normal aortic root. The pulmonary artery is normal size. Inferior vena cava collapse with respiration. Pericardium/Pleural No pericardial effusion. MMode/2D Measurements & Calculations LVIDd: 4.3 cm IVSd: 1.0 cm LVOT diam: 2.0 cm LVIDs: 2.0 cm LVPWd: 1.0 cm LVOT area: 3.1 cm2 RVDd: 3.8 cm FS: 52.2 % asc Aorta Diam: 3.8 cm LAV(MOD-bp): 22.9 ml LVAd ap4: 18.9 cm2 LAV(MOD-bp) Indexed: 12.2 ml/m2 LVLd ap4: 6.8 cm LAV(MOD-sp2): 29.5 ml EDV(MOD-sp4): 42.1 ml LAV(MOD-sp4): 13.4 ml EDV(sp4-el): 44.3 ml LVAs ap4: 9.9 cm2 LVLs ap4: 6.0 cm ESV(MOD-sp4): 14.1 ml ESV(sp4-el): 14.0 ml EF(MOD-sp4): 66.4 % EF(sp4-el): 68.3 % SV(MOD-sp4): 28.0 ml SV(MOD-sp2): 30.3 ml LVAd ap2: 19.2 cm2 LVLd ap2: 6.6 cm SI(MOD-sp4): 15.0 ml/m2 SI(MOD-sp2): 16.2 ml/m2 EDV(MOD-sp2): 45.3 ml EDV(sp2-el): 47.2 ml LVAs ap2: 9.9 cm2 LVLs ap2: 5.4 cm ESV(MOD-sp2): 15.0 ml ESV(sp2-el): 15.4 ml EF(MOD-sp2): 66.9 % SV(sp4-el): 30.3 ml Ao sinus diam: 3.[address] Junction: 2.8 cm LA A4 area: 8.0 cm2 LA dimension(2D): 3.2 cm RA A4 area: 9.4 cm2 TAPSE: 2.0 cm Time Measurements MV dec time: 0.26 sec Doppler Measurements & Calculations MV E max garrick: 59.0 cm/sec Lat Peak E' Garrick: 11.9 cm/sec Med Peak E' Garrick: 6.2 cm/sec MV A max garrick: 109.5 cm/sec E/E' lat: 4.9 E/E' med: 9.5 MV E/A: 0.54 Ao V2 max: 181.9 cm/sec AI max garrick: 349.7 cm/sec MV dec slope: 230.1 cm/sec2 Ao max P.2 mmHg AI max P.9 mmHg Ao V2 mean: 124.0 cm/sec Ao mean P.9 mmHg AI dec slope: 164.6 cm/sec2 Ao V2 VTI: 36.5 cm AI P1/2t: 622.4 msec AV (velocity ratio): 0.66 MINE(I,D): 2.0 cm2 MINE(V,D): 1.9 cm2 LV V1 max: 111.4 cm/sec SV(LVOT): 73.7 ml PA V2 max: 79.2 cm/sec LV V1 max P.0 mmHg LV V1 mean P.9 mmHg LV V1 mean: 81.7 cm/sec LV V1 VTI: 24.0 cm TR max garrick: 229.4 cm/sec TR max P.0 mmHg ECHO/Echo Complete Interpretation Summary Normal left ventricle. Left ventricular systolic function is normal. The left ventricular ejection fraction is 65 %. Stage 1 diastolic dysfunction. Ordering Physician: Salazar Mcleod Referring Physician: Salazar Mcleod Performed By: Samreen Leach, KHADRA
--- NOTE | 2024-09-16 17:39 | STRESSREP ---
Stress Test Report Pharmacologic myocardial perfusion stress test. 68-year-old lady with a history of dyspnea on exertion Resting EKG demonstrates sinus rhythm with a rate of 65 bpm. Resting blood pressure is 142/74 mmHg. 0.4 mg of regadenoson was infused per usual protocol followed by rapid intravenous saline flush injection. Continuous EKG monitoring was performed. The maximum heart rate was 91 bpm which was 59% of max impacted heart rate the maximum workload was 1 metabolic equivalent. At rest there were no ST or T wave changes noted to suggest ischemia and at peak infusion nonspecific ST changes were noted which did not meet the criteria for ischemia. No clinical angina is noted. The final blood pressure was 128/60 mmHg. Myocardial perfusion protocol. 13.2 mCi of technetium 99m sestamibi was injected at rest. 0.4 mg of regadenoson was infused per usual protocol. At peak infusion 41.5 mCi of technetium 99m sestamibi was injected stress images were obtained stress and rest images were reconstructed and compared in the short axis vertical long and horizontal long axis. Gated images were also obtained. Perfusion SPECT analysis: Review of the stress images demonstrate normal uptake of tracer noted in all areas of the myocardium. The resting images similar demonstrated normal uptake of tracer noted in all areas of the myocardium. No areas of reversibility are noted to suggest ischemia and no previous infarct is noted. Gated SPECT analysis: The gated ejection fraction is 80%. Conclusion: Normal pharmacologic myocardial perfusion stress test. Preserved ejection fraction.
== END | disposition home or self-care (01) ==
PROVIDERS: PCP Internal Medicine; Referring Provider Internal Medicine; Visit Provider Internal Medicine
DX: R06.09 Other forms of dyspnea (principal)
CPT/HCPCS: 78452; 93017; 93306; A9500; A4216; J2785